=== PATIENT | male | born 1995 | race Caucasian/White ===

== ENCOUNTER 2024-04-04 14:06 | Emergency (ER) | payer MEDICAID, SELFPAY ==
--- OUTSIDE RECORDS SUMMARY | 2024-04-04 14:08 | XMS_ITS | Patient Health Record ---
Author Organization [facility] S Address [address] [facility] [address] [place], [place] [id number] Care Team Providers Care Recreational Vehicle Resort Manager Name Role Phone SELECT, PROVIDER Primary Care Provider Unavailab le Allergies Allergen (clinical drug ingredient) Drug/Non Drug Allergy documented on EMR Reaction Allergy Type Onset Date Status amoxicillin Amoxicillin Unknown Drug Allergy Act gabriela Reason For Referral No Information Medications Medication SIG (Take, Route, Fr equency, Duration) Notes Start Date End Date Status Omeprazole 40 MG 1 cap(s) orally once a day Active Strattera 40 MG TAKE ONE CAPSULE BY MOUTH ONCE DAILY for 30 Active Remeron 15 MG TAKE 1/2 TO 1 TABLET BY MOUTH EVERY DAY AT BEDTIME for 30 Active Immunizations Vaccine Route Administration Date Status Comme nts Tdap (Boostrix 7 years & older ) Unknown 06/20/2015 Adm inistered Social History Tobacco Use: Social History Observation Description Date Details (start date - stop date) Current Smoker NA - NA Tobacco Status Question Answer Notes I am: current every day smoker Problems Problem Type SNOMED Code ICD Code Onset Dates Problem Status W/U Status Risk Notes Problem 207147247 Other insomnia (G47.09) Active confirmed Problem 971947521 Gastroesophageal reflux disease, esophagitis presence not specified (K21.9) Active confirmed Problem 109468587 ADHD, adult resi dual type (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
--- OUTSIDE RECORDS SUMMARY | 2024-04-04 14:08 | XMS_ITS | Clinical Summary ---
Author Organization [facility] Address [place], [place] [address] Care Team Providers Care Supply Chain Project Manager Name Role Phone Pcp, No Primary Care Provider Unavailabl e Allergies Active Allergy Reactions Criticality Noted Date Comments Amoxicillin Rash 05/04/2008 Fluoxetine Other - Describe In Comment Field 08/04/2017 Worsening depression Medications atomoxetine (STRATTERA) 18 mg capsule 0 Active albuterol HFA (Ventolin HFA) 90 mcg/actuation inhalerIndications :Mild intermittent asthma without complication Inhale 2 Puffs by mouth every 4 hours if needed for Shortness Of Breath or Wheezing. 1 g 3 4 Active omeprazole (PRILOSEC) 40 mg Delayed-Release capsuleIndications :Gastroesophageal reflux disease without esophagitis Take 1 Capsule (40 mg) by mouth once daily before a meal. 90 Capsule 3 4 Active multivitamin (MVI) tabletIndications: Routine general medical examination at a health care facility Take 1 Tablet by mouth once daily. 90 Tablet 3 4 Active escitalopram oxalate (LEXAPRO) 10 mg tabletIndications: LUIS (generalized anxiety disorder),Depressi on, recurrent (HC) Take 1 Tablet (10 mg) by mouth once daily. 30 Tablet 5 4 Active atomoxetine (Strattera) 18 mg capsuleIndications :Attention deficit hyperactivity disorder (ADHD), unspecified ADHD type Take 1 Capsule (18 mg) by mouth once daily. 30 Capsule 4 Active atomoxetine (Strattera) 25 mg capsuleIndications :Attention deficit hyperactivity disorder (ADHD), unspecified ADHD type Take 1 Capsule (25 mg) by mouth once daily. after finishing 18mg pills 30 Capsule 4 Active atomoxetine (Strattera) 40 mg capsuleIndications :Attention deficit hyperactivity disorder (ADHD), unspecified ADHD type Take 1 Capsule (40 mg) by mouth once daily. 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 Office Visit [address] [phone] Melody Lala, Medication Management 02/06/2024 Travel from Last 3 Months Immunizations Name Administration Dates Next Due DTP 08/31/1997, 6,10/21/1994,1993, 1993 Hepatitis B (Peds) 12/30/2005,11/19/2004, 005,03/01/1995 Inactivated Polio Vaccine 08/31/1997,07/15/1995, 1993,1993 Influenza, IIV3 (Age >=3 years) 12/30/2005 MMR 10/31/2004,10/21/1994 Td (Age >=7 Years) 10/31/2004 Tdap 06/20/2015 Varicella Vaccine 04/06/2002 Family History Medical History Relation Name Comments Good Health Father Diabetes Maternal Grandfather Rheumatic fever Maternal Grandfather No Known Problems Maternal Grandmother Good Health Mother Heart attack Paternal Grandfather No Known Problems Sister 1 Good Health Sister 2 Relation Name Status Comments Father Alive Maternal Grandfather Maternal Grandmother Alive Mother Alive Paternal Grandfather Paternal Grandmother Sister 1 Alive Sister 2 Social History Tobacco Use Types Packs/Day Years Used Date Smoking Tobacco: Every Day Cigarettes 1 8 Smokeless Tobacco: Current Chew Tobacco Cessation:Ready to Q uit: Not Asked; Counseling Given: Not Answered Alcohol Use Standard Drinks/Week Comments Not Currently 0 (1 standard drink = 0.6 oz pur e alcohol) PHQ-2 Answer Date Recorded PHQ-2 TOTAL SCORE 2 02/06/2024 Social Connections Answer Date Recorded Do you often feel lonely or isolated from those around you? 0 08/26/2023 Financial Resource Strain Answer Date R ecorded Difficulty of Paying Living Expenses Not on file 02/06/2024 Difficulty of Paying Living Expenses 3 02/06/2024 Food Insecurity Answer Date Recorded Do you worry your food will run out before you are able to buy more? 2 08/26/2023 Transportation Needs Answer Date Record ed Does lack of transportation keep you from medica l appointments? 1 08/26/2023 Does lack of transportation keep you from work, meetings or getting things that you need? 1 08/26/2023 Housing Stability Answer Date Recorded What is your housing situation today? 1 08/26/2023 Utilities Answer Date Recorded Do you have trouble paying f or utilities (for example, heat, electricity, water, phone)? 2 08/26/2023 Sex and Gender Information Value Date Recorded Sex Assigned at Not on file Legal Sex Male 5:23 AM AQUACULTURE WORKER Gender Identity Not on file Sexual Orientation Not on file Occupation Industry Job Start Date Job End Date [employer] Not on file Not on file Not on file Obstetrics History Last Filed Vital Signs Vital Sign Reading Time Taken Comments Blood Pressure 132/60 02/06/2024 10:41 AM AQUACULTURE WORKER Pulse 72 02/06/2024 10:41 AM AQUACULTURE WORKER Temperature 37.2 C (99 F) 11/17/2023 5:09 PM CDT Respiratory Rate 20 11/17/2023 5:09 PM CDT Oxygen Saturation 100% 11/17/2023 5:09 PM CDT Inhaled Oxygen Concentration - - Weight 74.9 kg (165 lb 3.2 oz) 02/06/2024 10:41 AM AQUACULTURE WORKER Height 195 cm (6' 4.77) 02/06/2024 10:41 AM AQUACULTURE WORKER Body Mass Index 19.71 02/06/2024 10:41 AM AQUACULTURE WORKER Plan of Treatment Upcoming Encounters Date Type Department Care Team (Late st Contact Info) Description 05/07/2024 11:00 AM CDT Office Visit [facility] [address] [place] [phone] Melody Lala, DO [address] [place] [address] Health Maintenance Due Date Last Done Comments HIV for age 15-65 2008 Hepatitis C screening for ag e 18-79 06/11/2011 Pneumococcal series for age 6-49 (1 of 2 - PCV) 2012 COVID-19 vaccine series ( - season) 2023 Influenza for age 9-49 10/26/2023 12/30/2005 BMI (ht and wt on same day) for age 18+ 02/05/2025 02/06/2024, 10/13/2018, 12/08/2017, Additional history exists Depression screening for age 12+ 02/05/2025 02/06/2024, 10/14/2018, 10/13/2018, Additional history exists Tetanus booster 06/19/2025 06/20/2015, 10/31/2004 Tdap Completed 06/20/2015 Insurance MEDICAID t of [facility] [place] [address] [facility] * Guarantor: [employer] Account Type Relation to Patient Date of Phone Billing Address [employer] Employer [phone] 3xpat (Home) [employer] [address] [place] [id number] Care Teams Supply Chain Project Manager Relationship Specialty Start Date End Date Pcp, No . PCP - General 08/26/23
[2024-04-04 14:09] VITALS: BP 145/74; PULSE 87; RESP 16; TEMP 37; O2SAT 99; BMI 20.1
--- NOTE | 2024-04-04 14:19 | CRLHL7_ITS ---
For Patients: As a result of the Century Cures Act, medical imaging exams and procedure reports are released immediately into your electronic medical record. You may view this report before your referring provider. If you have questions, please contact your health care provider. INDICATION: Hematuria TECHNIQUE: A CT volumetric acquisition was performed of the abdomen and pelvis without intravenous contrast. Please note that all CT scans at this facility use dose modulation, iterative reconstruction, and/or weight-based dosing when appropriate to reduce radiation dose to as low as reasonably achievable. COMPARISON: None. FINDINGS: The CT images demonstrate normal aeration of the lung bases. There is no evidence of pleural or pericardial fluid. Within the abdomen the liver appears normal in size and density. The spleen is of normal size. There is no evidence of mass effect or inflammation within the pancreas. The gallbladder and bile ducts appear normal. The adrenal glands have normal morphology. The kidneys are of normal size and there is no evidence of a calculus within either kidney or ureter and there is no evidence of hydronephrosis. The small and large bowel loops appear normal and there are no abnormalities noted within the small bowel mesentery or greater omentum. The aorta and IVC appear normal. There is no evidence of retroperitoneal lymphadenopathy. The prostate gland and urinary bladder appear normal. There is no evidence of a ventral abdominal wall hernia. IMPRESSION: Negative noncontrast abdominal pelvic CT. Please note that all CT scans at this facility use dose modulation, iterative reconstruction, and/or weight-based dosing when appropriate to reduce radiation dose to as low as reasonably achievable. Dictated by Joshua Aldana MD @ 04/04/2024 3:10:08 PM (Electronically Signed)
--- NOTE | 2024-04-04 14:19 | ED.GENADULT ---
HPI - General Adult General Chief complaint: Unspecified Complaint, Adult Stated complaint: Blood in urine and feeling ill Time Seen by Provider: 04/04/24 14:09 History of Present Illness HPI narrative: Patient is a 28-year-old gentleman with history of anxiety and tobacco use who presents with 1 day of hematuria. Patient has had no history of kidney stones. He began noticing bright red urine old yesterday and now today as dysuria. He also has some mild mid abdominal pain but no overt flank pain. No fevers no chills no nausea no vomiting no night sweats. No cough no shortness of breath. Patient has had no similar symptoms previously. Related Data Home Medications ?Medication ?Instructions ?Recorded ?Confirmed escitalopram oxalate 10 mg tablet mg DAILY 04/04/24 ibuprofen 04/04/24 omeprazole 40 mg capsule,delayed mg DAILY 04/04/24 release Allergies Allergy/AdvReac Type Severity Reaction Status Date / Time amoxicillin Allergy Rash Verified 04/04/24 14:12 Review of Systems Status of ROS: Reports: 10 or more systems reviewed and unremarkable except as noted in History and below PFSH [facility] Social History Smoking Status: Current every day smoker Do you use any of these nicotine containing products: E-Cigarettes and Vaping Products How often do you have a drink containing alcohol: never AUDIT-C Alcohol total score: 0 Non-prescribed substance use: denies use Exam Narrative: Exam Narrative: EXAM GENERAL: Patient appears comfortable and well. EYES: No scleral icterus. LYMPH: No supraclavicular or cervical lymphadenopathy. SKIN: Visible skin seen during exam normal or with benign process only. EXT: No dependent lower extremity pedal edema. HEART: Regular rate and rhythm with no murmurs, rubs, or gallops. LUNGS: Clear to auscultation bilaterally with no crackles or wheezes. ABD: Soft, non tender, non distended. PSYCH: Good eye contact, speech is not pressured. Const: Vital Signs, click to edit/add: Vital Signs - 24 hr 04/04/24 14:09 Temperature 98.6 F Pulse Rate [Left P ulse Oximeter] 87 Respiratory Rate 16 Blood Pressure [Ri ght Upper Arm] 145/74 H Pulse Oximetry 99 Oxygen Delivery Me thod Room Air Course Course ED Course: Patient seen and examined. CT abdomen pelvis UA CBC basic metabolic panel pending. Vital Signs Vital signs: Initial Vital Signs Temperature 98.6 F 04/04/24 14:09 Temperature Source Oral 04/04/24 14:09 Pulse Rate 87 04/04/24 14:09 Respiratory Rate 16 04/04/24 14:09 Blood Pressure 145/74 H 04/04/24 14:09 Blood Pressure Mean 97 04/04/24 14:09 Blood Pressure Position Sitting 04/04/24 14:09 Pulse Oximetry 99 04/04/24 14:09 Oxygen Delivery Method Room Air 04/04/24 14:09 Vital Signs Temperature 98.6 F 04/04/24 14:09 Pulse Rate 87 04/04/24 14:09 Respiratory Rate 16 04/04/24 14:09 Blood Pressure 145/74 H 04/04/24 14:09 Pulse Oximetry 99 04/04/24 14:09 Oxygen Delivery Method Room Air 04/04/24 14:09 Temperature 98.6 F 04/04/24 14:09 Pulse Rate 87 04/04/24 14:09 Respiratory Rate 16 04/04/24 14:09 Blood Pressure 145/74 H 04/04/24 14:09 Pulse Oximetry 99 04/04/24 14:09 Oxygen Delivery Method Room Air 04/04/24 14:09 Medical Decision Making MDM Narrative Medical decision making narrative: Patient is a 28-year-old gentleman comes in today with hematuria dysuria. Peers to have a bladder infection on UA. Labs reassuring CT abdomen pelvis is unremarkable. No history of STDs or urinary drainage or discharge. At this time will treated with ciprofloxacin for the next 5 days plenty of rest plenty fluids follow-up with primary care. I did give him my card and he can follow-up with me on a p.r.n. basis. Lab Data Labs: Lab Results 04/04/24 04/04/24 Range/Units 14:20 14:30 WBC 17.89 H (4.50-11.00) K/uL RBC 5.15 (4.30-5.90) m/uL Hgb 15.2 (13.5-17.5) gm/dL Hct 44.6 (37.0-53.0) % MCV 87 (80-100) fL MCH 30 (26-34) pg MCHC 34 (32-36) gm/dL RDW Coeff of Fabian 12.5 (11.5-15.5) % Plt Count 217 (140-440) K/uL Neut % (Auto) 76.5 H (42.0-72.0) % Lymph % (Auto) 12.6 L (20-44) % [place] % (Auto) 9.9 (0.0-11.0) % Eos % (Auto) 0.7 (0.0-7.0) % Baso % (Auto) 0.2 (0.0-3.0) % Neut # (Auto) 13.70 H (1.7-7.0) K/uL Lymph # (Auto) 2.30 (0.90-2.90) K/uL [place] # (Auto) 1.80 H (0.00-0.90) K/UL Eos # (Auto) 0.10 (0.00-0.50) K/uL Baso # (Auto) 0.00 (0.00-0.30) K/uL Abs Immat Gran (auto) 0.00 (0.00-0.30) K/uL Imm/Tot Granulo (auto) 0.1 % Sodium 137 (135-149) mmol/L Potassium 4.1 (3.6-5.1) mmol/L Chloride 100 (96-114) mmol/L Carbon Dioxide 29 (20-32) mmol/L Anion Gap 8 (7-15) mEq/L BUN 16 (5-24) mg/dL Creatinine 0.9 (0.5-1.5) mg/dL Estimated Creat Clear 127.05 Estimated GFR 118 ml/min Glucose 82 (60-115) mg/dL Calcium 9.4 (8.4-10.6) mg/dL Urine Color Dark yellow (Yellow) Urine Appearance Clear (Clear) Urine pH 5.5 (5.0-8.5) Ur Specific [place] >= 1.030 (1.000-1.030) Urine Protein 3+ A (Negative) Urine Glucose (UA) Negative (Negative) Urine Ketones Trace A (Negative) Urine Blood 3+ A (Negative) Urine Nitrite Positive A (Negative) Urine Bilirubin Negative (Negative) Urine Urobilinogen 1.0 (0.2-1.0) Ur Leukocyte Esterase 1+ A (Negative) Urine RBC 50-100 A (0-2) Urine WBC 10-25 A (0-5) Ur Squamous Epith Cells Moderate A (None-Few) Urine Bacteria Few A (None) Discharge Plan Discharge Clinical Impression: Acute UTI Patient Disposition: Home, Self-Care Condition: Stable Instructions: Urinary Tract Infection in Men (ED) Additional Instructions: Ciprofloxacin as directed Fluids Tylenol Motrin Follow-up as needed Activity Level: No Restrictions Discharge Diet: Regular Prescriptions: No Action omeprazole 40 mg capsule,delayed release(DR/EC) DAILY escitalopram oxalate 10 mg tablet DAILY ibuprofen Follow Up/Referrals: Provider,Not a Local [Primary Care Provider] - Stand Alone Forms: Office Depotealth Info Instructions
[2024-04-04 14:28] LABS: Appearance Urine Clear (Clear); Bilirubin Urine Negative (Negative); Blood Urine 3+ (Negative); Color Urine Dark yellow (Yellow); Glucose Urine Negative (Negative); Ketones Urine Trace (Negative); Leukocyte Esterase Urine 1+ (Negative); Nitrite Urine Positive (Negative); Protein Urine 3+ (Negative); Specific Gravity Urine >= 1.030 (1.000-1.030); pH Urine 5.5 (5.0-8.5)
[2024-04-04 14:39] LABS: Basophils Percent Auto 0.2 % (0.0-3.0); Eosinophils Percent Auto 0.7 % (0.0-7.0); Hematocrit 44.6 % (37.0-53.0); Hemoglobin* 15.2 gm/dL (13.5-17.5); Immature Granulocytes Pct Auto 0.1 %; Lymphocytes Percent Auto 12.6 % (20-44); Mean Corpuscular HGB Conc 34 gm/dL (32-36); Mean Corpuscular Hemoglobin 30 pg (26-34); Mean Corpuscular Volume 87 fL (80-100); Monocytes Percent Auto 9.9 % (0.0-11.0); Neutrophils Percent Auto 76.5 % (42.0-72.0); Platelet Count* 217 K/uL (140-440); RDW Coefficient of Variation % 12.5 % (11.5-15.5); Red Blood Count 5.15 m/uL (4.30-5.90); White Blood Count* 17.89 K/uL (4.50-11.00)
[2024-04-04 14:42] LABS: Bacteria Urine Few; RBC Urine 50-100 (0-2); Squamous Epithelial Cell Urine Moderate (None-Few)
--- OUTSIDE RECORDS SUMMARY | 2024-04-04 14:46 | XMS_ITS | Clinical Summary ---
Author Organization [facility] Address [place], [place] [address] Care Team Providers Care Manager Regional Sales Name Role Phone Pcp, No Primary Care [...] Department Care Team Description 02/06/2024 10:35 AM MILL RECORDER Office Visit [address] [phone] Melody Lala, Medication Management 02/06/2024 Travel from [...] on file Legal Sex Male 5:23 AM MILL RECORDER Gender Identity Not on file Sexual Orientation Not on file Occupation Industry Job Start Date Job End Date [employer] Not on file Not on file Not on file Obstetrics History Last Filed Vital Signs Vital Sign Reading Time Taken Comments Blood Pressure 132/60 02/06/2024 10:41 AM MILL RECORDER Pulse 72 02/06/2024 10:41 AM MILL RECORDER Temperature 37.2 C (99 F) 11/17/2023 5:09 PM CDT Respiratory Rate 20 11/17/2023 5:09 PM CDT Oxygen Saturation 100% 11/17/2023 5:09 PM CDT Inhaled Oxygen Concentration - - Weight 74.9 kg (165 lb 3.2 oz) 02/06/2024 10:41 AM MILL RECORDER Height 195 cm (6' 4.77) 02/06/2024 10:41 AM MILL RECORDER Body Mass Index 19.71 02/06/2024 10:41 AM MILL RECORDER Plan of Treatment Upcoming Encounters Date Type Department Care Team (Late st Contact Info) Description 05/07/2024 11:00 AM CDT Office Visit [facility] [address] [place] [address] Melody Lala, DO [address] [place] [address] Health Maintenance Due Date Last Done Comments [...] Tdap Completed 06/20/2015 Insurance MEDICAID t of [facility] [place] [address] [facility] Care Teams Manager Regional Sales Relationship Specialty Start Date End Date Pcp, No . PCP - General 08/26/23
[2024-04-04 14:47] LABS: Slide Review Reflex No
[2024-04-04 14:51] LABS: Chloride* 100 mmol/L (96-114)
[2024-04-04 14:52] LABS: Potassium* 4.1 mmol/L (3.6-5.1); Sodium* 137 mmol/L (135-149)
[2024-04-04 14:54] LABS: Creatinine* 0.9 mg/dL (0.5-1.5); Est. Creatinine Clearance* 127.05; Estimated Glomerular Filt Rate 118 ml/min
[2024-04-04 14:55] LABS: Anion Gap 8 mEq/L (7-15); Blood Urea Nitrogen* 16 mg/dL (5-24); Calcium* 9.4 mg/dL (8.4-10.6); Carbon Dioxide* 29 mmol/L (20-32); Glucose* 82 mg/dL (60-115)
== END 2024-04-04 15:30 | disposition home or self-care (01) ==
PROVIDERS: Emergency Provider Internal Medicine
DX: N39.0 Urinary tract infection, site not specified (principal)
CPT/HCPCS: 36415; 74176; 80048; 81001; 81003; 85025; 87086; 99283; 99284

== ENCOUNTER 2024-04-23 13:37 | Emergency (ER) | payer MEDICAID, SELFPAY ==
[2024-04-23 13:41] VITALS: BP 136/80; PULSE 97; RESP 16; TEMP 37.3; O2SAT 99; BMI 20.1
[2024-04-23 14:03] LABS: Appearance Urine Slightly Cloudy (Clear); Bilirubin Urine Negative (Negative); Blood Urine 3+ (Negative); Color Urine Yellow (Yellow); Glucose Urine Negative (Negative); Ketones Urine Trace (Negative); Leukocyte Esterase Urine 2+ (Negative); Nitrite Urine Negative (Negative); Protein Urine 2+ (Negative); Urobilinogen Urine 0.2 (0.2-1.0)
--- NOTE | 2024-04-23 14:23 | ED.ABDPAIN ---
HPI - Abdominal Pain General Chief Complaint: Abdominal Pain Stated Complaint: RT side sharp pains and pressure, urinated blood Time Seen by Provider: 04/23/24 14:23 History of Present Illness HPI narrative: This 28-year-old male comes in with report of hematuria and right lower abdomen pain and right-sided abdomen pain. He was seen about 2 and half weeks ago because of hematuria and was diagnosed with the urinary tract infection. He received a prescription for Cipro for 5 days and states that he felt better after taking this medicine. His symptoms have now returned over the past couple days with worsening abdominal pain. He does not report any fevers. He arrives here with normal vital signs. Related Data Home Medications ?Medication ?Instructions ?Recorded ?Confirmed escitalopram oxalate 10 mg tablet mg DAILY 04/04/24 ibuprofen 04/04/24 omeprazole 40 mg capsule,delayed mg DAILY 04/04/24 release Previous Rx's ?Medication ?Instructions ?Recorded cefprozil 500 mg tablet 500 mg PO BID #20 tabs 04/23/24 Allergies Allergy/AdvReac Type Severity Reaction Status Date / Time amoxicillin Allergy Rash Verified 04/04/24 14:12 Review of Systems Status of ROS Reports: 10 or more systems reviewed and unremarkable except as noted in History and below Narrative Constitutional: No fevers, no weight gain or loss. Eyes: No discharge. No vision changes. HENT: No congestion, no sore throat, no ear pain. Cardiovascular: No chest pain, no palpitations. Respiratory: No shortness of breath, no wheezes, no cough. Gastrointestinal: No vomiting, no diarrhea. Right-sided abdominal pain. Genitourinary: No dysuria. Gross hematuria. Musculoskeletal: Normal range of motion. Skin: No rashes, no pruritis. Neurological: No dizziness, weakness, sensory change, speech change. Endo/Heme/Allergies: No bruising or bleeding. No polydipsia. Pysch: no suicidality, no anxiety, no insomnia. All other systems reviewed and are negative. [facility] Social History Smoking Status: Current every day smoker Do you use any of these nicotine containing products: E-Cigarettes and Vaping Products How often do you have a drink containing alcohol: never AUDIT-C Alcohol total score: 0 Non-prescribed substance use: denies use Exam Narrative: Exam Narrative: Constitutional: Well-developed, well-nourished, no acute distress. HEENT: Normocephalic, atraumatic. Neck: Normal range of motion. Nontender. Supple. Heart: Regular. No murmurs. Normal rate. Intact distal pulses. Lungs: Clear to auscultation. No chest discomfort. No wheezes, rhonchi, or rales. Abdomen: Normal bowel sounds. Diffuse tenderness in the right abdomen. No rebound tenderness. No tenderness at McBurney's point. Rovsing sign is negative. Genitalia: Deferred. Back: No midline tenderness. Normal range of motion. Extremities: Normal range of motion. No injury. Skin: Intact. No rash. Warm. No erythema or pallor. Neurologic: No altered sensation. No weakness. Alert and oriented. Psychiatric: No suicidality. No anxiety or depression. No insomnia. Nursing notes and vitals signs are reviewed. Const: Vital Signs, click to edit/add: Vital Signs - 24 hr 04/23/24 13:41 Temperature 99.1 F Pulse Rate [Pulse Oximeter] 97 Respiratory Rate 16 Blood Pressure [Ri t Upper Arm] 136/80 Pulse Oximetry 99 Oxygen Delivery Me thod Room Air Course Vital Signs Vital signs: Initial Vital Signs Temperature 99.1 F 04/23/24 13:41 Temperature Source Temporal Artery Scan 04/23/24 13:41 Pulse Rate 97 04/23/24 13:41 Respiratory Rate 16 04/23/24 13:41 Blood Pressure 136/80 04/23/24 13:41 Blood Pressure Mean 98 04/23/24 13:41 Blood Pressure Position Sitting 04/23/24 13:41 Pulse Oximetry 99 04/23/24 13:41 Oxygen Delivery Method Room Air 04/23/24 13:41 Vital Signs Temperature 99.1 F 04/23/24 13:41 Pulse Rate 97 04/23/24 13:41 Respiratory Rate 16 04/23/24 13:41 Blood Pressure 136/80 04/23/24 13:41 Pulse Oximetry 99 04/23/24 13:41 Oxygen Delivery Method Room Air 04/23/24 13:41 Temperature 99.1 F 04/23/24 13:41 Pulse Rate 97 04/23/24 13:41 Respiratory Rate 16 04/23/24 13:41 Blood Pressure 136/80 04/23/24 13:41 Pulse Oximetry 99 04/23/24 13:41 Oxygen Delivery Method Room Air 04/23/24 13:41 MDM - Abdominal Pain MDM Narrative Medical decision making narrative: This patient comes in with recurrent hematuria. He was diagnosed with a urinary tract infection initially when this occurred a bit more than a couple weeks ago. He completed 5 days of Cipro and got temporary relief but his symptoms now have returned. Looking back at the culture results of that urinalysis a couple weeks ago, the pathogen was E coli and it was resistant to both Cipro and levofloxacin. All other antibiotics tested were sensitive. The patient was not adequately treated with this particular infection and it appears that Cipro provided a bacteriostatic affect but not bacteriocidal. The patient arrives here with normal vital signs and other than abdominal pain his exam is normal. He is not showing signs of an acute abdomen. He did have a CT scan of his abdomen and pelvis in his previous visit. I did discuss with him about repeating this test but given the evidence that we now have it seems reasonable to treat with an appropriate antibiotic and with pain medicine. The patient received a 1 g intramuscular injection of Rocephin and a prescription for Cefzil twice daily for 10 days. He is instructed to return if not improving or worsening symptoms occur. Lab Data Labs: Lab Results 04/23/24 Range/Units Unknown Urine Color Yellow (Yellow) Urine Appearance Slightly Cloudy A (Clear) Urine pH 6.0 (5.0-8.5) Ur Specific [place] 1.020 (1.000-1.030) Urine Protein 2+ A (Negative) Urine Glucose (UA) Negative (Negative) Urine Ketones Trace A (Negative) Urine Blood 3+ A (Negative) Urine Nitrite Negative (Negative) Urine Bilirubin Negative (Negative) Urine Urobilinogen 0.2 (0.2-1.0) Ur Leukocyte Esterase 2+ A (Negative) Urine RBC >100 A (0-2) Urine WBC >100 A (0-5) Ur Squamous Epith Cells Few (None-Few) Urine Bacteria Moderate A (None) Discharge Plan Discharge Clinical Impression: Urinary tract infection Patient Disposition: Home, Self-Care Condition: Stable Additional Instructions: Take medication as prescribed. Follow up with MD for ongoing management or return if symptoms persist or are worsening. Prescriptions: New cefprozil 500 mg tablet 500 mg PO BID Qty: 20 0RF No Action omeprazole 40 mg capsule,delayed release(DR/EC) DAILY escitalopram oxalate 10 mg tablet DAILY ibuprofen Follow Up/Referrals: Provider,Not a Local [Primary Care Provider] - Stand Alone Forms: [employer] Info Instructions
[2024-04-23 14:29] LABS: Bacteria Urine Moderate; RBC Urine >100 (0-2); Squamous Epithelial Cell Urine Few (None-Few); WBC Urine >100 (0-5)
[2024-04-23] MEDS: LIDOCAINE 1% 5 ml (pf) 5 ML VIAL 2.1 ML IM (14:53)
[2024-04-23] MEDS: cefTRIAXone 1 GM VIAL IM (14:53)
== END 2024-04-23 15:03 | disposition home or self-care (01) ==
PROVIDERS: Emergency Provider Emergency Medicine Emergency Medical Services
DX: N39.0 Urinary tract infection, site not specified (principal)
CPT/HCPCS: 81001; 87086; 96372; 99284; J0696

== ENCOUNTER 2024-08-06 13:58 | Emergency (ER) | payer OTHER, SELFPAY ==
--- OUTSIDE RECORDS SUMMARY | 2024-08-06 14:00 | XMS_ITS | Clinical Summary ---
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 1 g 3 4 Active omeprazole (PRILOSEC) 40 mg Delayed-Release capsuleIndication s:Gastroesophagea l reflux disease without esophagitis Take 1 Capsule (40 mg) by mouth once daily before a meal. 90 Capsule 3 4 Active multivitamin (MVI) tabletIndications :Routine general medical examination at a health care facility Take 1 Tablet by mouth once daily. 90 Tablet 3 4 Active escitalopram oxalate 10 mg tabletIndications :LUIS (generalized anxiety disorder),Depress ion, recurrent Take 1 Tablet (10 mg) by mouth once daily. 90 Tablet 1 5 Active Active Problems Problem Noted Date Diagnosed Date Tobacco use 03/06/2015 Heartburn Mild intermittent asthma Encounters Date Type Department Care Team Description 06/25/[address] [phone] Melody Lala DO Refill Request (Escitalopram) 05/07/2024 8:20 AM CDT Office Visit [address] [phone] Estrada Le PA Lump (by belly button - exertion or pressure causes pops out and painful at times- gotten bigger over the last yr) 05/07/2024 Travel from Last 3 Months Immunizations Immunization Administration Dates Next Due DTP 08/31/1997, 6,10/21/1994,1993, [...] on file 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 Gender Identity Not on file Sexual Orientation Not on file Occupation Industry Job Start Date Job End Date [employer] Not on file Not on file Not on file Obstetrics History Last Filed Vital Signs Vital Sign Reading Time Taken Comments Blood Pressure 114/62 05/07/2024 8:27 AM CDT Pulse 57 05/07/2024 8:27 AM CDT Temperature 37.2 C (99 F) 11/17/2023 5:09 PM CDT Respiratory Rate 20 11/17/2023 5:09 PM CDT Oxygen Saturation 99% 05/07/2024 8:27 AM CDT Inhaled Oxygen Concentration - - Weight 79.3 kg (174 lb 14.4 oz) 05/07/2024 8:27 AM CDT Height 195 cm (6' 4.77) 02/06/2024 10: 41 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 Body Mass Index 20.86 02/06/2024 10:41 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 Plan of Treatment Health Maintenance Due Date Last Done Comments HIV for age 15-65 2008 Hepatitis C screening for ag e 18-79 06/11/2011 Pneumococcal series for age 6-49 (1 of 2 - PCV) 2012 COVID-19 vaccine series ( season) 2023 Influenza Vaccine (Season Ended) 2024 12/31/19 BMI (ht and wt on same day) for age 18+ 02/05/2025 02/06/2024, 10/13/2018, 12/08/2017, Additional history exists Depression screening for age 12+ 02/05/2025 02/06/2024, 10/14/2018, 10/13/2018, Additional history exists Tetanus booster 06/19/2025 06/20/2015, 10/31/2004 Hepatitis B series for 19+ Completed 12/30, 11/19/2004, 10/31/2004, Additional history exists Tdap Completed 06/20/[address] [place] [address] Care Teams Agricultural Plow 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 PCP - General 08/26/23
[2024-08-06 14:02] VITALS: BP 122/82; PULSE 72; RESP 18; TEMP 36.7; O2SAT 99; BMI 21.3
--- NOTE | 2024-08-06 14:17 | ED_ITS ---
HPI - Eye Problem General Chief complaint: Eye Problems Stated complaint: Foreign object L eye Time Seen by Provider: 08/06/24 14:03 History of Present Illness HPI Narrative: Patient is a 29-year-old who feels like he may have scratched his eye yesterday. He was wearing safety glasses be woke this morning feeling like he had scratched her S thigh and lateral aspect of his left eye. He has no changes visual acuity. He has been feeling well otherwise no fevers no chills no night sweats. He does not feel like his injured in any other way is up-to-date on his tetanus shot. Related Data Home Medications ?Medication ?Instructions ?Recorded ?Confirmed escitalopram oxalate 10 mg tablet mg DAILY 04/04/24 omeprazole 40 mg capsule,delayed mg DAILY 04/04/24 release Allergies Allergy/AdvReac Type Severity Reaction Status Date / Time amoxicillin Allergy Rash Verified 08/06/24 14:05 Review of Systems Status of ROS: Reports: 10 or more systems reviewed and unremarkable except as noted in History and below PFSH PFS Social History Smoking Status: Current every day smoker Do you use any of these nicotine containing products: E-Cigarettes and Vaping Products How often do you have a drink containing alcohol: never AUDIT-C Alcohol total score: 0 Non-prescribed substance use: denies use Exam Narrative: Exam Narrative: EXAM GENERAL: Patient appears comfortable and well. EYES: No scleral icterus. I did aggressively provide topical lidocaine and then irrigated the eye. I do not see any foreign material. The eye response normally. He does have what appears to be a minor corneal abrasion on the lateral aspect of his left eye. He is now asymptomatic. I see no foreign material. ENT: Tympanic membranes and oropharynx normal. THYROID: no thyroid nodules or thyromegaly. LYMPH: No supraclavicular or cervical lymphadenopathy. SKIN: Visible skin seen during exam normal or with benign process only. EXT: No dependent lower extremity pedal edema. HEART: Regular rate and rhythm with no murmurs, rubs, or gallops. LUNGS: Clear to auscultation bilaterally with no crackles or wheezes. ABD: Soft, non tender, non distended. PSYCH: Good eye contact, speech is not pressured. Const: Vital Signs, click to edit/add: Vital Signs - 24 hr 08/06/24 14:02 Temperature 98.1 F Pulse Rate [Right Pulse Oximeter] 72 Respiratory Rate 18 Blood Pressure [Ri ght Upper Arm] 122/82 Pulse Oximetry 99 Oxygen Delivery Me thod Room Air Course Course ED Course: Patient seen and examined as above. Vital Signs Vital signs: Initial Vital Signs Temperature 98.1 F 08/06/24 14:02 Temperature Source Temporal Artery Scan 08/06/24 14:02 Pulse Rate 72 08/06/24 14:02 Pulse Rhythm Regular 08/06/24 14:02 Pulse Strength 3+ Normal 08/06/24 14:02 Respiratory Rate 18 08/06/24 14:02 Blood Pressure 122/82 08/06/24 14:02 Blood Pressure Mean 95 08/06/24 14:02 Blood Pressure Position Sitting 08/06/24 14:02 Pulse Oximetry 99 08/06/24 14:02 Oxygen Delivery Method Room Air 08/06/24 14:02 Vital Signs Temperature 98.1 F 08/06/24 14:02 Pulse Rate 72 08/06/24 14:02 Respiratory Rate 18 08/06/24 14:02 Blood Pressure 122/82 08/06/24 14:02 Pulse Oximetry 99 08/06/24 14:02 Oxygen Delivery Method Room Air 08/06/24 14:02 Temperature 98.1 F 08/06/24 14:02 Pulse Rate 72 08/06/24 14:02 Respiratory Rate 18 08/06/24 14:02 Blood Pressure 122/82 08/06/24 14:02 Pulse Oximetry 99 08/06/24 14:02 Oxygen Delivery Method Room Air 08/06/24 14:02 MDM - Eye Problem MDM Narrative Medical decision making narrative: Patient is seen examined. I did provide will topical anesthesia to his eye and he understands he cannot rib is I do any high risk activities for least 12 hours. Feels fine. I see no foreign body. I did give him some gentamicin drops that he can use topically they will follow-up with his eye doctor on Friday if not better. Discharge Plan Discharge Clinical Impression: Corneal abrasion Patient Disposition: Home, Self-Care Condition: Stable Instructions: Corneal Abrasion (ED) Additional Instructions: Gentamicin drops 4 drops 4 times a day for the next 3-4 days. Follow-up with the eye doctor on Friday if not better. Activity Level: No Restrictions Discharge Diet: Regular Prescriptions: No Action omeprazole 40 mg capsule,delayed release(DR/EC) DAILY escitalopram oxalate 10 mg tablet DAILY Follow Up/Referrals: Provider,Not a Local [Primary Care Provider, Family Practice] Stand Alone Forms: [employer] Info Instructions
== END 2024-08-06 14:33 | disposition home or self-care (01) ==
PROVIDERS: Emergency Provider Internal Medicine
DX: S05.02XA Injury of conjunctiva and corneal abrasion without foreign body, left eye, initial encounter (principal)
CPT/HCPCS: 99283